=== PATIENT | female | born 2005 | race Asian ===

== ENCOUNTER 2024-05-12 13:27 | Emergency (ER) | payer OTHER, SELFPAY ==
[2024-05-12 13:37] VITALS: BP 111/77
[2024-05-12 14:07] LABS: % Basophils 0.2 % (0-2); % Eosinophils 0.1 % (0-6); % Immature Granulocytes 0.4 % (0-0.5); % Lymphocytes 6.8 % (20.5-51.1); % Monocytes 7.8 % (1.7-9.3); % Neutrophils 84.7 % (42.2-75.2); Absolute Immature Granulocytes 0.1 10^3/uL (0-0.05); Absolute Lymphocytes 0.9 10^3/uL (1.2-3.4); Absolute Monocytes 1.1 10^3/uL (0.1-0.6); Absolute Neutrophils 11.7 10^3/uL (1.4-6.5); Hematocrit 42.5 % (37.0-47.0); Hemoglobin 14.4 g/dL (12.0-16.0); Mean Corp Hgb Conc. 33.9 g/dL (33.0-37.0); Mean Corpuscular Hgb 28.2 pg (27.0-31.0); Mean Corpuscular Volume 83.2 fL (81.0-99.0); Mean Platelet Volume 9.2 fL (7.4-10.4); Nucleated Red Blood Cells % 0 %; Platelet Count 288 10^3/uL (130-400); Red Blood Cell Count 5.11 10^6/uL (4.20-5.40); Red Cell Dist. Width 12.8 % (11.5-14.5); White Blood Cell Count 13.8 10^3/uL (4.8-10.8)
[2024-05-12 14:22] LABS: HCG, Serum Qualitative Screen Negative
[2024-05-12 14:24] LABS: ALT (SGPT) 27 U/L (0-35); AST (SGOT) 35 U/L (14-36); Albumin 4.5 g/dl (3.5-5.0); Alkaline Phosphatase 96 U/L (38-126); Blood Urea Nitrogen 9 mg/dl (7-17); Calcium 9.4 mg/dl (8.4-10.2); Carbon Dioxide 24 mmol/L (22-30); Chloride 103 mmol/L (98-107); Glucose 124 mg/dl (70-99); Potassium 3.9 mmol/L (3.5-5.1); Sodium 136 mmol/L (135-145); Total Bilirubin 0.3 mg/dl (0.2-1.3); Total Protein 7.6 g/dl (6.3-8.2); eGFR > 60.00
[2024-05-12 14:28] LABS: COVID-19 Antigen Negative (Negative)
--- NOTE | 2024-05-12 15:43 | ED.GENMED ---
History of Present Illness
General
Chief Complaint: Cold/Flu/URI Symptoms
Time Seen by Provider: 05/12/24 15:30
History of Present Illness
History of Present Illness:
Patient is a 19-year-old woman with history of asthma presenting to the emergency department is 2 day of fever and sore throat. Patient states that yesterday she had a low-grade fever with a sore throat. Her mother who is a physician started her
on cefepime and gave her combination Tylenol ibuprofen pill. She states that when she takes the pill the symptoms improved however as it wears off as she takes every 6 hours her sore throat comes back. This morning she had a fever that did not
improve the pill so they came to the emergency department. Patient's mother states that the pill is 500 mg Tylenol and 150 mg of ibuprofen. She last had it at 1 PM. She does state that she has some difficulty swallowing with a sore throat. She
denies any pain with opening her mouth. No changes in her voice. No tongue or lip involvement. No chest pain or difficulty breathing. No nausea vomiting. No abdominal pain.
Phy Exam
Physical Exam
Physical Exam:
GENERAL: in no acute distress
HEENT: normocephalic, extraocular movements intact, moist oral mucosa, posterior oropharynx erythematous with bilateral tonsillar exudates, uvula midline, no peritonsillar fluctuance, tolerating secretions
NECK: normal inspection, full range of motion
RESPIRATORY: no respiratory distress, clear to auscultation bilaterally
CARDIOVASCULAR: regular rate and rhythm
ABDOMEN/: soft, non-distended, non-tender to palpation, no rebound or guarding
EXTREMITIES: non-tender, no edema/swelling
NEUROLOGIC: awake and alert, moves all extremities
SKIN: warm
Sepsis
Sepsis Screening
Sepsis Assessment: Sepsis Ruled Out
Sepsis Screen
Sepsis Screen: Sepsis Ruled Out
Date: 05/12/24
Time: 17:36
Course
Orders/Labs/Results
Orders:
Orders
05/12/24 13:41
Test Result ONCE
05/12/24 13:51
Comprehensive Metabolic Panel Urgent
HCG, Serum Qualitative Screen Urgent
05/12/24 13:52
COVID-19 Antigen Urgent
Source: Nasal Swab
Complete Blood Count/With Diff Urgent
Influenza A+B Rapid Molecular Urgent
JULIAN Source: Nasal Swab
Specimen Description:
Date Specimen was Collected: 05/12/24
Time Specimen was Collected: 13:42
Rapid Strep Group A Urgent
JULIAN Source: Throat/Pharynx
Specimen Description:
Date Specimen was Collected: 05/12/24
Time Specimen was Collected: 13:42
05/12/24 15:05
Influenza A+B Rapid Molecular Urgent
JULIAN Source: [facility]
Specimen Description:
05/12/24 15:34
Add On- LAB Urgent
Comments:: mono test
Tests Added?: mono test
05/12/24 15:41
0.9% Sodium Chloride 1000 ml [Nss] 1,000 ml IV BOLUS
Ibuprofen [Motrin] 600 mg PO NOW STA
05/12/24 16:00
Phenol 1.4% [place] [Chloraseptic/Sore Throat [place]] See Dose Instructions PO ONCE ONE
05/12/24 16:55
Viscous Lidocaine 2% [Xylocaine Viscous Cup] 15 ml PO ONCE ONE
Abnormal Lab Results
05/12/24 05/12/24
13:51 13:52
WBC 13.8 H 10^3/uL
(4.8-10.8)
Abs Immat Gran (auto) 0.1 H 10^3/uL
(0-0.05)
Absolute Neuts (auto) 11.7 H 10^3/uL
(1.4-6.5)
Absolute Lymphs (auto) 0.9 L 10^3/uL
(1.2-3.4)
Absolute Monos (auto) 1.1 H 10^3/uL
(0.1-0.6)
Neutrophils % 84.7 H %
(42.2-75.2)
Lymphocytes % 6.8 L %
(20.5-51.1)
Glucose 124 H mg/dl
(70-99)
05/12/24 13:52
05/12/24 13:51
Vital Signs
Initial and Last Documented VS:
Initial Vital Signs
Temp Pulse Resp BP Pulse Ox
101.2 F H 135 18 111/77 98
05/12/24 13:37 05/12/24 13:37 05/12/24 13:37 05/12/24 13:37 05/12/24 13:37
Last Documented Vital Signs
Temp Pulse Resp BP Pulse Ox
101.2 F H 135 18 121/88 98
05/12/24 13:37 05/12/24 13:37 05/12/24 13:37 05/12/24 17:00 05/12/24 17:00
MDM/Problems Addressed
Differential Diagnosis Includes:
Patient is a 19-year-old female presenting to the emergency department 2 days of fever sore throat. Vitals here notable for being febrile as well as tachycardic initially however that did improve during my examination. On exam patient does have
posterior oropharynx erythema as well as bilateral tonsillar exudates. Differential consists of strep versus mono versus viral pharyngitis. History and exam not consistent with peritonsillar abscess or deeper space infection. Blood work obtained
prior to evaluation does show leukocytosis. Her BMP is unremarkable. COVID flu strep is negative. Will obtain monoscreen. Will redose ibuprofen and give IV fluids.
*Critical Care Note
Total Time (30-74mins, 75-104mins- exclusive of procedures): Not Applicable
Update Note
Update Note:
On reevaluation patient is resting comfort relief. She does feel as if the pain is better. She is tolerating p.o. Will discharge at this time. Monoscreen pending at the time of discharge.
ED Attending Note
-
Portions of this chart may have been created with voice recognition software.� Occasional wrong word or��sound alike� substitutions may have occurred due to the inherent limitations of voice recognition software.
Discharge Plan
Departure
Patient Disposition: Home (Routine Discharge)
Date of Disposition: 05/12/24
Time of Disposition: 17:34
Patient with high blood pressure during this ER visit?: No
Discharge Problem:
Pharyngitis
Instructions: Sore throat in adults - ED discharge instructions
Referrals:
NONE,* [Family Provider] -
Activity Restrictions/Additional Instructions:
We discussed pain medications:
You may take Tylenol (also known as Acetaminophen) for pain.
You may take 1000mg Acetaminophen (two extra-strength tablets) per dose, which should be taken every 6-8 hours, or three times a day.
If you have normal strength Tylenol, you can take 650mg (two normal strength tablets) every 4-6 hours.
Do not take more than 3,000mg (3 grams) of Acetaminophen per day.
Never take more than as directed on the bottle.
You may also take Ibuprofen (also known as Motrin or Advil). If taking with Tylenol, alternate and take between dosing.
You may take 400-800mg of Ibuprofen per dose, which should be taken every 6-8 hours.
Do not take more than 3200mg (3.2 grams) of Ibuprofen per day.
Please see your primary care doctor soon to be reevaluated and to make sure that you are improving. We have included information about establishing care with a doctor if you do not have one.
We talked about your evaluation, diagnosis, and treatment in the Emergency Department today. You must see your primary doctor for recheck and followup care in order to evaluate your progress or any changes. Have your doctor recheck the test
results/information from the ED visit. As discussed, RETURN to the ED if you develop worsening/changing symptoms or have no improvement in symptoms after the treatments provided.
Interventions
Interventions:
*Risk Screen - Suicide Last Done: 05/12/24 15:49
*General Assessment Last Done: 05/12/24 15:49
*Neglect/Abuse Screening Last Done: 05/12/24 15:49
*ED COVID-19 Vaccine History Last Done: 05/12/24 15:49
ED- Pulmonary Assessment Last Done: 05/12/24 15:58
Discharge Date and Time
Print Language: UKRAINIAN
[2024-05-12] MEDS: MOTRIN 600 MG PO (15:50)
[2024-05-12] MEDS: NSS 1000 IV (15:50)
[2024-05-12 15:53] VITALS: BP 133/71
[2024-05-12 16:00] VITALS: BP 134/85
[2024-05-12] MEDS: XYLOCAINE VISCOUS CUP 15 ML PO (16:58)
[2024-05-12 17:00] VITALS: BP 121/88
[2024-05-12 18:00] VITALS: BP 106/59
== END 2024-05-12 18:57 | disposition home or self-care (01) ==
LOC: EMR 13:27
PROVIDERS: Emergency Medicine; EMERGENCY PHYSICIAN Student in an Organized Health Care Education/Training Program
DX: J02.9 Acute pharyngitis, unspecified (principal); J45.909 Unspecified asthma, uncomplicated
CPT/HCPCS: 99283; 96360; 80053; 84703; 85025; 87070; 87502; 87811; 87880